=== PATIENT | female | born 1995 | race Two or more races ===

== ENCOUNTER 2017-04-05 15:59 | Emergency (ER) | payer MEDICAID, OTHER ==
[~2017-04-05] VITALS: Ht 157.5 cm; Wt 55.8 kg
[2017-04-05 16:17] VITALS: BP 142/86
== END 2017-04-05 17:53 | disposition home or self-care (01) ==
LOC: ER 16:03
DX: L04.0 Acute lymphadenitis of face, head and neck (principal)

== ENCOUNTER 2017-05-26 09:11 | Emergency (ER) | payer MEDICAID ==
[~2017-05-26] VITALS: Ht 157.5 cm; Wt 55.3 kg
[2017-05-26 09:13] VITALS: BP 152/81
[2017-05-26 10:17] LABS: Urine Bilirubin Negative (Negative); Urine Color Red (Yellow); Urine Glucose Normal (Normal); Urine Ketone Negative (Negative); Urine Nitrite Negative (Negative); Urine RBC 2579 /hpf (0 - 4); Urine Squamous Epithelial Cell MOD /hpf (<5); Urine Urobilinogen Normal (Negative)
[2017-05-26 10:22] LABS: Urine Blood 3+ /uL (Negative)
[2017-05-26] MEDS ORDERED: cefTRIAXone SOD 1,000 MG VL IM ONE (11:15)
== END 2017-05-26 11:44 | disposition home or self-care (01) ==
LOC: ER 09:13
DX: N39.0 Urinary tract infection, site not specified (principal)
CPT/HCPCS: 81001; 81025; 96372; 99284; J0696

== ENCOUNTER 2017-06-09 16:41 | Emergency (ER) | payer MEDICAID ==
[~2017-06-09] VITALS: Ht 157.5 cm; Wt 55.3 kg
[2017-06-09 17:19] VITALS: BP 130/70
== END 2017-06-09 18:05 | disposition home or self-care (01) ==
LOC: ER 16:45
DX: T78.40XA Allergy, unspecified, initial encounter (principal)

== ENCOUNTER 2017-08-17 12:51 | Emergency (ER) | payer MEDICAID ==
[~2017-08-17] VITALS: Ht 157.5 cm; Wt 55.3 kg
[2017-08-17 13:12] VITALS: BP 155/71
== END 2017-08-17 15:16 | disposition home or self-care (01) ==
LOC: ER 12:51
DX: S16.1XXA Strain of muscle, fascia and tendon at neck level, initial encounter (principal); S39.012A Strain of muscle, fascia and tendon of lower back, initial encounter; V89.2XXA Person injured in unspecified motor-vehicle accident, traffic, initial encounter; Y93.89 Activity, other specified; Y92.89 Other specified places as the place of occurrence of the external cause; Y99.8 Other external cause status
CPT/HCPCS: 72040; 72100